=== PATIENT | female | born 1995 | race Hispanic/Latino ===

== ENCOUNTER 2021-02-11 08:56 | Emergency (ER) | payer SELFPAY ==
[2021-02-11 09:34] LABS: #Monocytes 0.4 10x3/uL (0.0-1.1); #Neutrophils 3.2 10x3/uL (1.5-8.4); %Basophils 0.2 % (0.0-2.0); %Eosinophils 0.9 % (0.0-6.0); %Lymphocytes 18.6 % (18.0-47.0); %Monocytes 8.9 % (0.0-10.0); %Neutrophils 71.2 % (40.0-75.0); Hemoglobin 11.6 g/dL (12.0-15.5); Mean Corpuscular HGB CONC 30.3 g/dL (32.0-36.0); Mean Corpuscular Hemoglobin 24.8 pg (27.0-33.0); Mean Corpuscular Volume 81.8 fl (81.6-98.3); Mean Platelet Volume 10.4 fl (7.4-10.4); Platelet Count 221 10x3/uL (150-450); RBC Distribution Width 15.9 % (11.5-14.5); Red Blood Cell (RBC) Count 4.68 10x6/uL (3.90-5.03); White Blood Cell (WBC) Count 4.5 10x3/uL (3.5-10.5)
[2021-02-11 09:37] LABS: Bilirubin 1+ (Negative); Blood, Urine 10 (Negative); Clarity Clear (Clear); Glucose, Urine (Dipstick) Normal (Negative); Ketone, Urine Negative (Negative); Leukocyte Negative (Negative); Nitrite Negative (Negative); Protein, Urine (Dipstick) 15 mg/dl (Neg-Trace)
[2021-02-11 09:40] LABS: Pregnancy Test - Urine (BHCG) Negative (Negative); Pregu Control Background? CLEAR/WHITE (CLR/WHITE); Pregu Control Bar Appear? YES (CONTROL BAR)
[2021-02-11] MEDS ORDERED: Ondansetron PF 4 MG/2 ML Vial ONE (09:44)
[2021-02-11 09:45] LABS: RBC/HPF 0-3 HPF (0-3); Squamous Epithelial 0-3 HPF (0-3); WBC/HPF 0-3 HPF (0-3)
[2021-02-11 09:46] LABS: Bacteria/HPF Rare-Few HPF (None Seen); Mucous/LPF 2+ LPF (<2+)
[2021-02-11 09:54] LABS: ALT (SGPT) 476 U/L (8-55); AST (SGOT) 1018 U/L (5-34); Albumin 4.5 g/dL (3.5-5.0); Alkaline Phosphatase 178 U/L (40-110); Anion Gap 15 mmol/L (10-20); BUN (Urea Nitrogen) 16 mg/dL (7.0-18.7); Bilirubin, Total 1.4 mg/dL (0.2-1.2); Calc. Creatinine Clearance 0 mL/min (70-130); Calcium 9.9 mg/dL (7.8-10.44); Carbon Dioxide 21 mmol/L (22-29); Chloride 108 mmol/L (98-107); Globulin 2.8 g/dL (2.4-3.5); Glucose 104 mg/dL (70-105); Lipase 56 U/L (8-78); Potassium 4.3 mmol/L (3.5-5.1); Protein, Total 7.3 g/dL (6.0-8.3); Sodium 140 mmol/L (136-145)
[2021-02-11] MEDS ORDERED: Morphine 4 MG/ML VIAL ONE (09:56)
== END 2021-02-11 14:54 | disposition home or self-care (01) ==
LOC: CSHERS 08:56
DX: K80.20 Calculus of gallbladder without cholecystitis without obstruction (principal); N28.1 Cyst of kidney, acquired; R74.01 Elevation of levels of liver transaminase levels
CPT/HCPCS: 36415; 74177; 74181; 80053; 81003; 81015; 81025; 83690; 85025; 96374; 96375; J2270; J2405